=== PATIENT | female | born 1955 | race Caucasian/White ===

== ENCOUNTER 2016-11-25 15:52 | Emergency (ER) | payer OTHER, MEDICARE ==
[2016-11-25 16:48] VITALS: TEMP 98.5; BMI 18.3
[2016-11-25 17:17] LABS: MCH 31.5 pg (25.7-33.7); MCHC 34.3 g/dl (32.0-36.0)
[2016-11-25 17:19] LABS: MEAN CELL VOLUME 91.9 fl (80-96); MEAN PLT VOLUME 8.5 fl (7.5-11.1); PLATELET COUNT 286 K/MM3 (134-434); RDW 14.8 % (11.6-15.6); WHITE BLOOD COUNT 10.9 K/mm3 (4.0-10.8)
[2016-11-25 17:28] LABS: ACTIVATED PTT 29.6 SECONDS (24.0-38.9)
[2016-11-25 17:32] LABS: INR 0.88 (0.82-1.09); PROTHROMBIN TIME (PATIENT) 9.9 SEC (10.2-13.0)
[2016-11-25 17:45] LABS: TROPONIN I 0.03 ng/ml (0.00-0.05)
[2016-11-25 17:51] LABS: ALBUMIN 3.6 g/dl (3.5-5.0); ANION GAP 8 (8-16); BILIRUBIN,TOTAL 0.7 mg/dl (0.2-1.0); CALCIUM 10.3 mg/dl (8.4-10.2); CO2 27 mmol/L (22-28); CREATININE 1.1 mg/dl (0.6-1.3); GLUCOSE,RANDOM 79 mg/dl (74-106); SGOT/AST 51 U/L (10-42); SGPT/ALT 61 U/L (10-40); TOT PROT 6.3 g/dl (6.4-8.3)
[2016-11-25 18:12] LABS: ALK PHOS 1255 U/L (32-92)
[2016-11-25 18:22] VITALS: BP 120/63
[2016-11-25] MEDS ORDERED: ACETAMINOPHEN 1000 MG/100 ML VIAL (NON FORMULARY) IVPB ONE (18:31)
[2016-11-25] MEDS ORDERED: levETIRAcetam 500 MG/5 ML INJECTION VIAL IVPB ONE ×2 (18:32→18:40)
[2016-11-25] MEDS ORDERED: ACETAMINOPHEN INJECTION 100 ML IVPB ONE (18:40)
--- NOTE | 2016-11-25 18:52 | PDOC ---
History of Present Illness - General History Source: Patient Exam Limitations: No Limitations - History of Present Illness Initial Comments: 11/25/16 18:57 The patient is a 60 year old female, with significant past medical history of non hodgkin's lymphoma s/p bone marrow transplant and in remission, who was sent into the emergency room by her oncologist, Dr. Jc Disla, after a Head CT from 1:45pm this afternoon was read as mixed age but predominantly acute right cerebral convexity subdural hematoma causing mild regional mass effect upon the right cerebral hemisphere and mild right to left midline shift. The patient explains that 2 days ago she tripped and fell and hit her head at home. Since the fall, she developed a gradual global headache. She presented to her oncologist today for her headache, but left the office before her CT was read. As soon as her doctor received the results, she was told to go to the nearest ER. Pt is not on any anticoagulation, but took 2 motrin today and 2 motrin last night for her headache. Denies any focal weakness, numbness, dizziness, N/V, SOB, CP, dysuria. On arrival to ED, pt's BP was 114/68, pt was awake and alert x3. Head of the bed was brought up to 30 degrees. Allergies: Sulfa, Oncologist: Dr. 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 - Psycho/Social/Smoking Cessation Hx Anxiety: Yes Suicidal Ideation: No Smoking History: Former smoker Have you smoked in the past 12 months: No Information on smoking cessation initiated: No Hx Alcohol Use: No Drug/Substance Use Hx: No Substance Use Type: None <Ksaey Elias - Last Filed: 11/25/16 21:49> - Past Medical History Allergies/Adverse Reactions: Allergies Allergy/AdvReac Type Severity Reaction Status Date / Time Iodinated Contrast- Oral and Allergy Unknown Verified 11/25/16 17:05 IV Dye Sulfa (Sulfonamide Allergy Verified 10/25/14 17:55 Antibiotics) Home Medications: Ambulatory Orders Citalopram Hydrobromide [Celexa -] 40 mg PO DAILY 10/25/14 Clonazepam [KlonoPIN] 1.5 mg PO HS 10/25/14 Ranitidine HCl [Zantac] 150 mg PO BID 10/25/14 Cetirizine HCl [Zyrtec -] 10 mg PO HS 11/25/16 Cyproheptadine [Periactin -] 4 mg PO BID 11/25/16 Diphenhydramine HCl [Benadryl -] 50 mg PO HS 11/25/16 Fexofenadine HCl [Esther Allergy] 60 mg PO DAILY 11/25/16 Review of Systems - Review of Systems Able to Perform ROS?: Yes Comments:: 11/25/16 18:58 GENERAL/CONSTITUTIONAL: No fever or chills. No weakness. HEAD, EYES, EARS, NOSE AND THROAT: No change in vision. No ear pain or discharge. No sore throat. CARDIOVASCULAR: No chest pain or shortness of breath. RESPIRATORY: No cough, wheezing, or hemoptysis. GASTROINTESTINAL: No nausea, vomiting, diarrhea or constipation. GENITOURINARY: No dysuria, frequency, or change in urination. MUSCULOSKELETAL: No joint or muscle swelling or pain. No neck or back pain. SKIN: No rash NEUROLOGIC: +headache, vertigo, loss of consciousness, or change in strength/ sensation. ENDOCRINE: No increased thirst. No abnormal weight change. HEMATOLOGIC/LYMPHATIC: No anemia, easy bleeding, or history of blood clots. ALLERGIC/IMMUNOLOGIC: No hives or skin allergy. <Sunshine Sanz - Last Filed: 11/25/16 18:59> *Physical Exam - Vital Signs Last Vital Signs Temp Pulse Resp BP Pulse Ox 98.5 F 94 H 14 120/63 99 11/25/16 16:08 11/25/16 18:00 11/25/16 18:00 11/25/16 18:00 11/25/16 18:00 - Physical Exam Comments: 11/25/16 18:58 GENERAL: Awake, alert, and fully oriented, in no acute distress HEAD: No signs of trauma EYES: PERRLA, EOMI, sclera anicteric, conjunctiva clear ENT: Auricles normal inspection, hearing grossly normal, nares patent, oropharynx clear without exudates. Moist mucosa NECK: Normal ROM, supple, no lymphadenopathy, JVD, or masses LUNGS: Breath sounds equal, clear to auscultation bilaterally. No wheezes, and no crackles HEART: Regular rate and rhythm, normal S1 and S2, no murmurs, rubs or gallops ABDOMEN: Soft, nontender, normoactive bowel sounds. No guarding, no rebound. No masses EXTREMITIES: Normal range of motion, no edema. No clubbing or cyanosis. No cords, erythema, or tenderness NEUROLOGICAL: Normal speech, cranial nerves intact, negative pronator drift, 5/ 5 strength in all 4 extremities, normal sensation to light touch in all 4 extremities, normal cerebellar exam, normal gait, normal reflexes and tone SKIN: Warm, Dry, normal turgor, no rashes or lesions noted. <Sunshine Sanz - Last Filed: 11/25/16 18:59> - Vital Signs Last Vital Signs Temp Pulse Resp BP Pulse Ox 98.5 F 94 H 14 120/63 99 11/25/16 16:08 11/25/16 18:00 11/25/16 18:00 11/25/16 18:00 11/25/16 18:00 <Kasey Elias - Last Filed: 11/25/16 21:49> ED Treatment Course - LABORATORY CBC & Chemistry Diagram: 11/25/16 16:50 11/25/16 16:50 - ADDITIONAL ORDERS Additional order review: Laboratory Results 11/25/16 11/25/16 11/25/16 16:50 16:50 16:50 INR 0.88 L PTT (Actin FS) 29.6 Sodium 136 Potassium 4.1 Chloride 101 Carbon Dioxide 27 Anion Gap 8 BUN 20 H Creatinine 1.1 Creat Clearance w eGFR 50.67 Random Glucose 79 Calcium 10.3 H Magnesium 2.0 Total Bilirubin 0.7 AST 51 H ALT 61 H Alkaline Phosphatase 1255 H Troponin I 0.03 Total Protein 6.3 L Albumin 3.6 Anti-A Titer Cancelled Blood Type Cancelled Antibody Screen Cancelled Spec Expiration Date Cancelled 11/25/16 16:50 RBC 4.05 MCV 91.9 MCHC 34.3 RDW 14.8 MPV 8.5 Neutrophils % Y Lymphocytes % Y - RADIOLOGY Radiograph Interpretation: 11/25/16 18:[address] without contrast Impression: acute right frontotemporal convexity subdural hematoma with resultant contralateral midline displacement as discussed above. Small amount of right frontal convexity subarachnoid blood laterally. As reported by Dr. Praveen Spann - Medications Given in the ED: ED Medications Discontinued Medications Generic Name Dose Route Start Last Admin Trade Name Luciano PRN Reason Stop Dose Admin Acetaminophen 1,000 mg 11/25/16 18:31 11/25/16 18:40 Ofirmev Injection - IVPB 11/25/16 18:32 1,000 mg ONCE ONE Administration Levetiracetam 1,000 mg 11/25/16 18:32 11/25/16 18:50 Keppra Injection - IVPB 11/25/16 18:33 1,000 mg ONCE ONE Administration <Sunshine Sanz - Last Filed: 11/25/16 18:59> - LABORATORY CBC & Chemistry Diagram: 11/25/16 16:50 11/25/16 16:50 - ADDITIONAL ORDERS Additional order review: Laboratory Results 11/25/16 11/25/16 11/25/16 16:50 16:50 16:50 INR 0.88 L PTT (Actin FS) 29.6 Sodium 136 Potassium 4.1 Chloride 101 Carbon Dioxide 27 Anion Gap 8 BUN 20 H Creatinine 1.1 Creat Clearance w eGFR 50.67 Random Glucose 79 Calcium 10.3 H Magnesium 2.0 Total Bilirubin 0.7 AST 51 H ALT 61 H Alkaline Phosphatase 1255 H Troponin I 0.03 Total Protein 6.3 L Albumin 3.6 Anti-A Titer Cancelled Blood Type Cancelled Antibody Screen Cancelled Spec Expiration Date Cancelled 11/25/16 16:50 RBC 4.05 MCV 91.9 MCHC 34.3 RDW 14.8 MPV 8.5 Neutrophils % Y Lymphocytes % Y - RADIOLOGY Radiology Studies Ordered: Category Date Time Status HEAD CT WITHOUT CONTRAST [CT] Stat CT Scan 11/25/16 16:28 Completed CHEST X-RAY PORTABLE* [RAD] Stat Radiology 11/25/16 16:29 Taken - Medications Given in the ED: ED Medications Discontinued Medications Generic Name Dose Route Start Last Admin Trade Name Luciano PRN Reason Stop Dose Admin Acetaminophen 1,000 mg 11/25/16 18:31 11/25/16 18:40 Ofirmev Injection - IVPB 11/25/16 18:32 1,000 mg ONCE ONE Administration <Kasey Elias - Last Filed: 11/25/16 21:49> Medical Decision Making - Medical Decision Making 11/25/16 18:59 Dr. Bravo was paged via office number and spoke with dr. Elias at 4:45pm. The family requested to be transferred to [facility]. The transfer center was paged at 6:00pm. Dr. Elias spoke with the accepting physician at [place] at 6:25pm. <Sunshine Sanz - Last Filed: 11/25/16 18:59> - Critical Care Time Total Critical Care Time (minutes): 35 Critical Care Statement: The care of this patient involved high complexity decision making to prevent further life threatening deterioration of the patient 's condition and/or to evaluate & treat vital organ system(s) failure or risk of failure. - Medical Decision Making 11/25/16 17:36 60yo F p/w traumatic SDH. Not on AC. BP well controlled. Neurologically intact. Will c/s [facility] for management and transfer to [facility] per family request. -labs -type and screen -rpt CTH -NPO -HOB 30 degrees -smart grid engineer -CXR -anti-epileptics as recommended by NSG -transfer as long as remains stable 11/25/16 18:[address] Carvalho from [facility] who recommends we hold off on the AEDs and transfer pt for likely surgical evacuation. Family requests to be transferred to [facility]. I spoke with Dr. Brunson from NSG at [facility] who accepts pt under Dr. Escamilla. He also recommends Keppra 1G. I spoke with Dave from [facility] transfer center who will be sending a critical care ambulance for the patient. Pt remains hemodynamically stable with non focal neurologic exam. Keppra 1G IV and Tylenol 1G IV ordered. 11/25/16 18:36 Transport here to take patient. I explained all findings to the patient and her . I answered all of there questions. They are satisfied with their care here. Pt is stable for DC to [facility] <Kasey Elias - Last Filed: 11/25/16 21:49> *DC/Admit/Observation/Transfer - Attestations Scribe Attestion: 11/25/16 18:58 Documentation prepared by ELOISA Muñoz, acting as medical office assistant for Kasey Elias MD <Sunshine Sanz - Last Filed: 11/25/16 18:59> - Transfer to Acute Care Facility Receiving Facility: [facility]. - Attestations Physician Attestion: 11/25/16 21:48 I, Dr. Kasey Elias MD, attest that this document has been prepared under my direction and personally reviewed by me in its entirety. I further attest, that it accurately reflects all work, treatment, procedures and medical decision -making performed by me. <Kasey Elias - Last Filed: 11/25/16 21:49> Diagnosis at time of Disposition: Traumatic subdural hematoma - Discharge Dispostion Disposition: TRANSFER ACUTE CARE/OTHER HOSP Condition at time of disposition: Good
[2016-11-25 19:17] VITALS: PULSE 86
[2016-11-25 21:14] LABS: PLATELET ESTIMATE ADEQUATE (NORMAL); REACTIVE LYMPHOCYTES 1 % (0-80)
== END 2016-11-25 19:18 | disposition short-term general hospital (02) ==
LOC: FER 15:52
PROC: 3E033GC Introduction of Other Therapeutic Substance into Peripheral Vein, Percutaneous Approach (ICD-10-PCS; principal; 2016-11-25)
PROC: 3E033NZ Introduction of Analgesics, Hypnotics, Sedatives into Peripheral Vein, Percutaneous Approach (ICD-10-PCS; 2016-11-25)
DX: S00.93XA Contusion of unspecified part of head, initial encounter (principal); W18.39XA Other fall on same level, initial encounter; Y93.9 Activity, unspecified; Y92.009 Unspecified place in unspecified non-institutional (private) residence as the place of occurrence of the external cause; C85.90 Non-Hodgkin lymphoma, unspecified, unspecified site; I51.9 Heart disease, unspecified; Z87.891 Personal history of nicotine dependence; F41.9 Anxiety disorder, unspecified; F07.81 Postconcussional syndrome
CPT/HCPCS: 36415; 70450-TC; 71010-TC; 80053; 83735; 84484; 85025; 85610; 85730; 99285-25

== ENCOUNTER 2016-11-29 10:05 | Emergency (ER) | payer OTHER, MEDICARE ==
[2016-11-29] MEDS ORDERED: SODIUM CHLORIDE 1,000 ML IV SCH (10:30)
--- NOTE | 2016-11-29 10:39 | PDOC ---
History of Present Illness - General Chief Complaint: CVA/TIA Stated Complaint: SLURRED SPEECH & LEFT ARM WEAKNESS Time Seen by Provider: 11/29/16 10:22 History Source: Patient, Spouse Exam Limitations: No Limitations - History of Present Illness Initial Comments: 11/29/16 10:34 Patient is a 60F with history of subdural bleed (dx 4 days ago at , transferred to [facility], d/c tuesday, tx conservatively), NHL s/p two stem cell transplants here today complaining of slurred speech and left sided weakness upon awakening this morning. Last known well at 10pm yesterday. Associated symptoms include headache. She denies nausea, vomiting, and changes in vision. Her states that she woke up with slurred speech yesterday morning as well, but her symptoms resolved. She denies palpitations, chest pain, and shortness of breath. She denies taking any anticoagulants. Last took ibuprofen for headache 4 days ago. Past History - Past Medical History Allergies/Adverse Reactions: Allergies Allergy/AdvReac Type Severity Reaction Status Date / Time Iodinated Contrast- Oral and Allergy Unknown Verified 11/25/16 17:05 IV Dye Sulfa (Sulfonamide Allergy Verified 10/25/14 17:55 Antibiotics) Home Medications: Ambulatory Orders Citalopram Hydrobromide [Celexa -] 40 mg PO DAILY 10/25/14 Clonazepam [KlonoPIN] 1.5 mg PO HS 10/25/14 Ranitidine HCl [Zantac] 150 mg PO BID 10/25/14 Cetirizine HCl [Zyrtec -] 10 mg PO HS 11/25/16 Cyproheptadine [Periactin -] 4 mg PO BID 11/25/16 Diphenhydramine HCl [Benadryl -] 50 mg PO HS 11/25/16 Fexofenadine HCl [Esther Allergy] 60 mg PO DAILY 11/25/16 Cancer: Yes (Non-Hodgkin's lymphoma s/p stem cell transplant) Cardiac Disorders: Yes (Pericardial effusion (drained)) CVA: Yes - Psycho/Social/Smoking Cessation Hx Anxiety: Yes Suicidal Ideation: No Smoking History: Former smoker Have you smoked in the past 12 months: No Hx Alcohol Use: No Drug/Substance Use Hx: No Substance Use Type: None Review of Systems - Review of Systems Comments:: 11/29/16 10:39 GENERAL/CONSTITUTIONAL: No fever or chills. HEAD, EYES, EARS, NOSE AND THROAT: No change in vision. No sore throat. CARDIOVASCULAR: No chest pain or shortness of breath RESPIRATORY: No cough, wheezing, or hemoptysis. GASTROINTESTINAL: No vomiting, diarrhea or constipation. GENITOURINARY: No dysuria, frequency, or change in urination. SKIN: Positive for rash, stable for past year NEUROLOGIC: Positive for headache and decreased sensation and strength on left side. Negative for loss of consciousness HEMATOLOGIC/LYMPHATIC: No anemia, easy bleeding, or history of blood clots. *Physical Exam - Physical Exam Comments: 11/29/16 10:40 GENERAL: Awake, alert, and fully oriented, in no acute distress HEAD: No signs of trauma, normocephalic, atraumatic EYES: PERRLA, EOMI, sclera anicteric, conjunctiva clear ENT: Auricles normal inspection, hearing grossly normal, nares patent, oropharynx clear without exudates. Moist mucosa LUNGS: No distress, speaks full sentences, clear to auscultation bilaterally HEART: Regular rate and rhythm, normal S1 and S2, no murmurs, rubs or gallops, peripheral pulses normal and equal bilaterally. ABDOMEN: Soft, nontender, normoactive bowel sounds. No guarding, no rebound. No masses EXTREMITIES: Normal inspection, Normal range of motion, no edema. No clubbing or cyanosis. NEUROLOGICAL: Mild facial assymmetry, otherwise Cranial nerves II through XII grossly intact. Normal speech, stroke scale of 2, 5/5 strength in all extremities, mild left leg sensory deficit to pinprick sensation, no ataxia SKIN: Warm, Dry, normal turgor, positive for diffuse rash on arms NIH Stroke Scale - Last Known Well Date/Time & Onset Date Last Known Well: 11/28/16 Time Last Known Well: 10:00 - Initial Evaluation Level of consciousness: Alert Ask patient the month and their age: Answers both correctly Ask patient to open & close eyes; make fist and let go: Obeys both correctly Best gaze (horizontal eye movement): Normal Visual field testing: No visual field loss Facial paresis (Show teeth/raise eyebrows/close eyes tight): Minor paralysis ( flattened nasolabial fold, asymmetry on smiling) Motor Function: Left Arm: Normal Motor Function: Right Arm: Normal (extends arm 90 (or 45) degrees for 10 seconds without drift Motor Function: Left Leg: Normal (extends leg 30 degrees for 5 seconds without drift) Motor Function: Right Leg: Normal (extends leg 30 degrees for 5 seconds without drift) Limb Ataxia: No ataxia Sensory(Use pinprick test arms,legs,trunk,face/side to side): Mild to moderate decrease in sensation Best language (Describe picture, name items, read sentences): No Aphasia Dysarthria (read several words): Normal articulation Extinction and Inattention: No abnormality - Total Score NIH Stroke Scale Score: 2 Critical Care Time/MDM Note - Medical Decision Making Note: 11/29/16 10:42 60F with history of recent subdural bleed and NHL s/p stem cell transplant here today complaining of slurred speech and left sided weakness and sensory deficits. Stroke scale 2. Concern mostly from who says she is off from her baseline. Will order labs, ecg, cxr and ct head. 11/29/16 11:43 CT Head shows evolving subdural hematoma. [facility] contacted, Dr Caballero accepted transfer. Will transfer via [facility]. Discharge Disposition - Diagnosis Traumatic subdural hematoma - Discharge Dispostion Condition at time of disposition: Fair - Transfer to Acute Care Facility Receiving Facility: [facility].
[2016-11-29 10:47] LABS: MCH 30.7 pg (25.7-33.7); MCHC 33.3 g/dl (32.0-36.0); MEAN CELL VOLUME 92.1 fl (80-96); MEAN PLT VOLUME 7.8 fl (7.5-11.1); PLATELET COUNT 287 K/MM3 (134-434); RDW 14.1 % (11.6-15.6); WHITE BLOOD COUNT 11.9 K/mm3 (4.0-10.8)
--- NOTE | 2016-11-29 11:04 | PDOC ---
Attending Attestation - Resident Resident Name: Juan Melendez - ED Attending Attestation I have performed the following: I have examined & evaluated the patient, The case was reviewed & discussed with the resident, I agree w/resident's findings & plan, Exceptions are as noted - HPI HPI: 11/29/16 10:52 60 yo F h/o traumatic SDH s/p ER visit 4 days ago S/p transfer to [facility] (per pt preference) s/p discharge 2 days ago Pt returns ambulatory to the ER today due to slurred, cognitive decline - Physicial Exam PE: 11/29/16 10:56 ? Slurred speech motor 5/5 all extremities sensation in tact A & O x 3 - Medical Decision Making 60 yo F acute on chronic SDH Pt with new neurologic symptoms per will transfer back to [facility] Discharge Disposition - Diagnosis Traumatic subdural hematoma - Discharge Dispostion Disposition: TRANSFER ACUTE CARE/OTHER HOSP Condition at time of disposition: Stable - Transfer to Acute Care Facility Receiving Facility: [facility]. Heart Score/ECG Review #1 ECG reviewed & interpreted by me at: 11:04 General ECG Interpretation: Sinus Rhythm, Normal Rate, Normal Intervals, No acute ischemic changes
[2016-11-29 11:05] LABS: ALBUMIN 2.9 g/dl (3.5-5.0); ALK PHOS 935 U/L (32-92); ANION GAP 8 (8-16); BILIRUBIN,TOTAL 0.7 mg/dl (0.2-1.0); CALCIUM 9.1 mg/dl (8.4-10.2); CO2 27 mmol/L (22-28); CREATININE 0.9 mg/dl (0.6-1.3); GLUCOSE,RANDOM 92 mg/dl (74-106); SGOT/AST 52 U/L (10-42); SGPT/ALT 52 U/L (10-40); TOT PROT 5.8 g/dl (6.4-8.3)
[2016-11-29 11:06] VITALS: BMI 18.3
[2016-11-29 11:12] LABS: INR 1.06 (0.82-1.09); PROTHROMBIN TIME (PATIENT) 11.9 SEC (10.2-13.0)
[2016-11-29 11:47] VITALS: PULSE 62; TEMP 98.2
[2016-11-29 12:02] LABS: CPK 50 IU/L (26-192); TROPONIN I 0.03 ng/ml (0.00-0.05)
[2016-11-29 12:10] VITALS: BP 122/72
--- NOTE | 2016-11-30 10:24 | EKG ---
Test Reason : Blood Pressure : / mmHG Vent. Rate : 065 BPM Atrial Rate : 065 BPM P-R Int : 152 ms QRS Dur : 082 ms QT Int : 416 ms P-R-T Axes : 056 -17 035 degrees QTc Int : 432 ms NORMAL SINUS RHYTHM NONSPECIFIC T WAVE ABNORMALITY NO PREVIOUS ECGS AVAILABLE Confirmed by MD LOPEZ, MELBA ([id number]) on 11/30/2016 10:23:51 AM Referred By: PORSHA Confirmed By:MELBA MARROQUIN MD
== END 2016-11-29 12:49 | disposition short-term general hospital (02) ==
LOC: FER 10:05
DX: S06.5X0A Traumatic subdural hemorrhage without loss of consciousness, initial encounter (principal); X58.XXXA Exposure to other specified factors, initial encounter; Y93.9 Activity, unspecified; Y92.9 Unspecified place or not applicable; C85.90 Non-Hodgkin lymphoma, unspecified, unspecified site; Z88.2 Allergy status to sulfonamides; Z91.041 Radiographic dye allergy status; Z86.73 Personal history of transient ischemic attack (TIA), and cerebral infarction without residual deficits; Z87.891 Personal history of nicotine dependence
CPT/HCPCS: 36415; 70450-TC; 71010-TC; 80053; 84484; 85025; 85610; 86850; 86900; 86901; 93005; 99285-25